=== PATIENT | male | born 1980 | race Caucasian/White ===

== ENCOUNTER 2021-09-14 08:56 | Emergency (ER) | payer MEDICAID ==
[~2021-09-14] VITALS: Ht 167.6 cm; Wt 74.8 kg
[2021-09-14 09:30] VITALS: BP_SYST 132
--- NOTE | 2021-09-14 09:30 | NUR ---
Patient to ER bed TENT1 to gown for evaluation. Side rails up.
--- NOTE | 2021-09-14 09:45 | NUR ---
ER at bedside examining patient.
--- NOTE | 2021-09-14 09:50 | NUR ---
PT SEEN AND GIVEN TX AND RX FOR COVID (+) RESULTS. PT REPORTS BODY ACHES AND FEVER. NO ACUTE RESP DISTRESS NOTED.
--- NOTE | 2021-09-14 10:40 | NUR ---
Patient given written and verbal discharge instructions and verbalizes understanding. ER MD discussed with patient the results and treatment provided. Patient in stable condition. ID arm band removed. NO Rx of given. Patient educated on pain management and to follow up with PMD. Pain Scale 0. Opportunity for questions provided and answered. Medication side effect fact sheet provided.
== END 2021-09-14 10:40 | disposition home or self-care (01) ==
LOC: SED 08:56
DX: U07.1 COVID-19 (principal)
CPT/HCPCS: 99281